=== PATIENT | male | born 1950 | race Caucasian/White ===

== ENCOUNTER 2018-11-18 13:00 | Emergency (ER) | payer MEDICARE, OTHER ==
[~2018-11-18] VITALS: Ht 165.1 cm; Wt 127.0 kg
[~2018-11-18 13:00] MED LIST: ACTOS15 MG PO; ADULT LOW DOSE81 MG PO; AMLODIPINE BESY10 MG PO; CRESTOR10 MG PO; DIOVAN HCT 3201 EAC1 PO; EXENATIDE SC; GLUCOPHAGE500 MG PO; MIRALAX255 GM PO; PHENTERMINE H37.5 MG PO
[2018-11-18] MEDS ORDERED: GLYBURIDE 2.52.5 MG PO (13:19)
[2018-11-18] MEDS ORDERED: FISH OIL 1,001000 M2 PO (13:19)
[2018-11-18] MEDS ORDERED: WELCHOL 625 MG625 MG PO (13:19)
[2018-11-18] MEDS ORDERED: VITAMIN D1000 UNI1 PO (13:19)
[2018-11-18] MEDS ORDERED: NORCO 5-325 TA1 EAC1 PO (15:37)
[2018-11-18 16:01] VITALS: BP 149/63
== END 2018-11-18 16:01 | disposition home or self-care (01) ==
LOC: M.ERS 13:00
DX: M79.661 Pain in right lower leg (principal); I10 Essential (primary) hypertension; E11.9 Type 2 diabetes mellitus without complications; E78.5 Hyperlipidemia, unspecified; Z85.51 Personal history of malignant neoplasm of bladder; Z96.652 Presence of left artificial knee joint

== ENCOUNTER 2019-07-20 19:00 | Emergency (ER) | payer MEDICARE, OTHER ==
[~2019-07-20] VITALS: Ht 165.1 cm; Wt 135.6 kg
[~2019-07-20 19:00] MED LIST changes: +FISH OIL 1,001000 M2 PO; +GLYBURIDE 2.52.5 MG PO; +NORCO 5-325 TA1 EAC1 PO; +VITAMIN D1000 UNI1 PO; +WELCHOL 625 MG625 MG PO
[2019-07-20 19:56] LABS: ABSOLUTE BASOPHILS 0.1 thou/uL (0.0-0.2); ABSOLUTE LYMPHOCYTES 0.5 thou/uL (0.8-5.3); ABSOLUTE MONOCYTES 0.9 thou/uL (0.0-1.2); ABSOLUTE NEUTROPHILS 8.6 thou/uL (1.6-8.1); BASOPHILS 0.7 %; EOSINOPHILS 0.3 %; HEMATOCRIT 23.5 % (42.0-52.0); HEMOGLOBIN 7.8 gm/dL (14.0-18.0); LYMPHOCYTES 5.2 %; MCH 26.7 pg (26.0-34.0); MCHC 33.1 g/dL (28.0-37.0); MCV 80.7 fL (80.0-100.0); MPV 7.7 fl. (7.2-11.1); NUCLEATED RBCS 0 /100WBC; PLATELET COUNT* 254 thou/uL (150-400); POLYS 84.8 %; RBC 2.91 mil/uL (4.50-6.00); RDW-CV 17.5 % (10.5-14.5); WBC 10.1 thou/uL (4.0-11.0)
[2019-07-20 20:07] LABS: CALCIUM 7.7 mg/dL (8.5-10.1); CREATININE 3.2 mg/dL (0.6-1.3)
[2019-07-20 20:16] LABS: INR 1.1; PROTIME 11.1 Seconds (9.20-11.50)
[2019-07-20 20:20] LABS: ALBUMIN 2.3 g/dL (3.4-5.0); MAGNESIUM 1.6 mg/dL (1.8-2.4); TOTAL BILIRUBIN 0.3 mg/dL (<0.1-1.0); TOTAL PROTEIN 6.9 g/dL (6.4-8.2)
[2019-07-20 20:56] LABS: URINE BILIRUBIN NEGATIVE (Negative); URINE BLOOD 3+ (Negative); URINE CLARITY CLEAR; URINE COLOR YELLOW; URINE GLUCOSE-RANDOM NEGATIVE (Negative); URINE KETONES NEGATIVE (Negative); URINE LEUKOCYTES-REFLEX 2+ (Negative); URINE NITRITE-REFLEX NEGATIVE (Negative); URINE PROTEIN 3+ (Negative); URINE UROBILINOGEN 0.2 E.U./dl (0.2-1.0)
[2019-07-20 21:11] LABS: BACTERIA-REFLEX >30 Many /HPF (None Seen); CASTS None Seen /LPF (None Seen); CRYSTALS None Seen /LPF (None Seen); SQUAMOUS 0-3 Few /LPF (0-3); URINE RBC >20 Many /HPF (0-2); URINE WBC-REFLEX 6-15 Few /HPF (0-5)
[2019-07-21 00:59] VITALS: BP 114/47
--- NOTE | 2019-07-26 12:22 | EKG ---
[place] [address] ELECTROCARDIOGRAM REPORT Name: SHELLIE IVORY Room: [place]#: [id number] Admission: 07/20/19 Attend Phys: Discharge: 07/21/19 Date of : 50 Date of Service: 07/20/191906 Report #: [id number] THIS REPORT FOR: //name// [facility] ED Test Date: 2019-07-20 Test Time: 19:07:28 Pat Name: SHELLIE IVORY Department: Room: Gender: Personal Coach: : 1950 Requested By: Luann Jeffries Order Number: [id number] MD: Payam Chao Measurements Intervals [place] Rate: 105 P: 35 IN: 157 QRS: -26 QRSD: 147 T: 14 QT: 372 QTc: 492 Interpretive Statements Sinus tachycardia Right bundle branch block No previous ECG available for comparison Electronically Signed On 07-22-2019 10:10:50 CDT by Payam Chao [email or web address] <ELECTRONICALLY SIGNED> By: Payam Chao MD, [facility] 07/22/19 1010 06 06 Payam Chao MD, FACC /EPI
== END 2019-07-21 01:01 | disposition short-term general hospital (02) ==
LOC: M.ERS 19:00
PROVIDERS: Emergency Medicine
DX: D64.9 Anemia, unspecified (principal); N19 Unspecified kidney failure; R06.00 Dyspnea, unspecified; R60.0 Localized edema; I10 Essential (primary) hypertension; E11.9 Type 2 diabetes mellitus without complications; E78.5 Hyperlipidemia, unspecified; Z96.652 Presence of left artificial knee joint; Z85.51 Personal history of malignant neoplasm of bladder